=== PATIENT | female | born 1995 | race Caucasian/White ===

== ENCOUNTER 2025-11-11 11:20 | Emergency (ER) | payer OTHER ==
[2025-11-11] MEDS ORDERED: Acetaminophen 500 MG TAB ONE (12:12)
[2025-11-11] MEDS ORDERED: Ketorolac Tromethamine 30 MG (1 mL) VIAL ONE (12:12)
== END 2025-11-11 13:17 | disposition home or self-care (01) ==
LOC: EEVIPCON 11:20 → ERS 11:20
DX: S63.501A Unspecified sprain of right wrist, initial encounter (principal); S60.221A Contusion of right hand, initial encounter; Z79.899 Other long term (current) drug therapy; W18.2XXA Fall in (into) shower or empty bathtub, initial encounter
CPT/HCPCS: 96372; 99283; J1885